=== PATIENT | female | born 1950 | race Caucasian/White ===

== ENCOUNTER 2017-05-29 07:17 | Day surgery (SDC) | payer MEDICARE ==
[2017-05-29 07:57] VITALS: BMI 32.0
--- NOTE | 2017-05-29 08:52 | CP.SDSHP ---
Same Day Surgery H & P - History Proposed Procedure: EGD and colonoscopy Pre-Op Diagnosis: dysphagia, abnormal esophagram, history of polyps - Previous Medical/Surgical History Cardiac: Hypertension Misc: Other Comments: Arthritis, hyperlipidemia Previous Surgical History: Hysterectomy, left breast lumpectomy - Allergies Allergies: Allergies No Known Allergies Allergy (Verified 05/29/17 07:57) - Current Medications Current Medications: See reconciliation sheet - Physical Exam General Appearance: WD WN female in NAD Vital Signs: Vital Signs 05/29/17 07:45 Temperature 97.1 F L Pulse Rate 74 Respiratory 16 Rate Blood Pressure 130/82 O2 Sat by Pulse 100 Oximetry Mental Status: Alert & Oriented x3 Neuro: WNL Heart: WNL Lungs: WNL GI: WNL - {Optional Preform as Required} Abdomen: WNL - Impression Impression: Abnormal esophagram, history of polyps Pt. Evaluated Today:Candidate for Anesthesia & Procedure: Yes - Date & Time Date: 05/29/17 Time: 08:52 Short Stay Discharge - Short Stay Discharge Admitting Diagnosis/Reason for Visit: DYSPHAGIA / CHANGE IN BOWEL HABITS Disposition: HOME/ ROUTINE
[2017-05-29] MEDS ORDERED: Propofol 10 mg/ml Inj (20 ML) ONE (08:57)
[2017-05-29] MEDS ORDERED: Lactated Ringer's 500 ML IV SCH (09:00)
[2017-05-29] MEDS ORDERED: Lactated Ringer's 1,000 ML IV ONE (09:05)
[2017-05-29 10:20] VITALS: TEMP 97; O2SAT 99
[2017-05-29 10:51] VITALS: BP 125/69; PULSE 65; RESP 16
== END 2017-05-29 10:48 | disposition home or self-care (01) ==
LOC: C.ENDO 07:17
PROVIDERS: ATTEND Internal Medicine Gastroenterology
DX: R13.14 Dysphagia, pharyngoesophageal phase (principal); R19.4 Change in bowel habit; K64.8 Other hemorrhoids; K57.30 Diverticulosis of large intestine without perforation or abscess without bleeding; K44.9 Diaphragmatic hernia without obstruction or gangrene; K29.70 Gastritis, unspecified, without bleeding
CPT/HCPCS: 43239; 45378; 88305; J2704; J3010; J7120